=== PATIENT | male | born 1955 | race Caucasian/White ===

== ENCOUNTER → 2016-11-29 | Day surgery (SDC) | payer BC ==
[~2016-11-29] MED LIST: BUPIVACAINE/EPINEPHRINE 0.25% PF 10 ML VIAL ONE; ISOSULFAN BLUE 50 MG/5 ML VIAL SQ ONE; KETOROLAC TROMETHAMINE 30 MG/ML (IVP) VIAL IV PUSH ONE; LACTATED RINGER'S 1000 ML INJ 1,000 ML ONE; MIDAZOLAM HCL 2 MG/2 ML VIAL ONE; ONDANSETRON HCL 4 MG/2 ML VIAL IV PUSH ONE; PROPOFOL 200 MG/20 ML AMP IV ONE; ceFAZolin 2 GM PREMIX 50 ML ONE
--- NOTE | 2016-12-02 23:16 | TN ---
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 Wide excision of right posterior shoulder intermediate thickness melanoma site with intermediate closure of wound 9 cm x 3.5 cm. 2. [place] lymph node biopsy right axilla. ATTENDING SURGEON Frankie Rangel MD [facility] Staff ANESTHESIA General and local anesthetic COMPLICATIONS None BLOOD LOSS Less than 20 mL FINDINGS No gross melanoma at the primary site. Two fatty type lymph nodes in the right axilla. one palpable. one hot and palpable INDICATIONS FOR PROCEDURE The patient is a 61-year-old male who was recently diagnosed with an intermediate thickness melanoma of his right upper back. The patient underwent excision of the entire melanoma by his wrist closer. The patient was referred for consideration of sentinel lymph node biopsy. After discussion with the patient about sentinel lymph node biopsy for his melanoma as well as the risk of local recurrence. The patient elected to undergo sentinel lymph node biopsy as well as re-excision of his previous excision site to decrease risk of recurrence locally. We discussed with the patient the risks, benefits, alternatives to this approach. He agreed to undergo the procedure. PROCEDURE IN DETAIL After informed consent was obtained, the patient was taken to the operating room placed in a supine position. The patient was placed under general anesthesia. The patient was then turned to his right side, bumped up and his right posterior shoulder was prepped and draped in sterile fashion as well as the axilla. We then first performed the sentinel lymph node. We anesthetized the area of skin approximately 3 cm below the right axillary hairline. We used the local anesthetic at this site and excise this with a 15 blade scalpel. We used a Bovie electrocautery to dissect to the subcutaneous tissue and open the clavipectoral fascia. Using the appendiceal retractors, we gained access to the axilla. We used to needle probe to identify one hot lymph node and one palpable lymph node that was not hot. These were passed off for permanent pathology. We had excellent hemostasis in the axilla. We closed the axillary contents and the clavipectoral fascia with 3-0 Vicryl sutures. We closed the skin with 4-0 Monocryl and Dermabond. At this point in time, we turned our attention towards the right shoulder. This was again anesthetized with local anesthetic. We then performed a 1 cm excision on either side of the patient's previous excision site the full length of the excision with a 15 blade scalpel. We used the Bovie cautery to dissect down to subcutaneous tissue down to the trapezius fascia. We oriented the specimen with a stitch superior. We then did some mild mobilization approximate 1 cm undermining for 360 degrees around the wound and closed this with approximately eight deep dermal 0 Vicryl sutures. Skin was closed with 4-0 Monocryl and Dermabond under minimal tension. At this point in time, the patient was discontinued from anesthesia and taken to the PACU in stable condition. The patient tolerated the procedure well. No apparent complications. All counts were correct. I was present and scrubbed for the entire procedure. MD PRIYANKA Coates/ /9:55 PM /10:58 PM [facility]
== END | disposition home or self-care (01) ==
LOC: ESDC 07:06
PROVIDERS: ATTEND Surgery
DX: C43.59 Malignant melanoma of other part of trunk (principal)
CPT/HCPCS: 00400; 01610; 11606; 12034; 38525; 88305; 88307; 88341; 88342; J0690; J1885; J2250; J2405; J3010; J7120; Q9968